=== PATIENT | male | born 1965 | race African-American/Black ===

== ENCOUNTER → 2020-05-23 10:05 | Outpatient (BNVA) | payer OTHER, SELFPAY | PROVIDERS: PCP Internal Medicine; Visit Provider Internal Medicine Cardiovascular Disease | DX: I50.20 Unspecified systolic (congestive) heart failure (principal); I42.9 Cardiomyopathy, unspecified; I48.92 Unspecified atrial flutter; Z79.899 Other long term (current) drug therapy | CPT/HCPCS: 93005; 99202 ==

== ENCOUNTER → 2020-07-04 10:27 | Outpatient (REF) | payer OTHER, SELFPAY ==
--- NOTE | ~2020-07-04 | XR_ITS ---
EXAMINATION: XR CHEST CLINICAL INFORMATION: I50.9 - Heart failure, unspecified COMPARISON: None TECHNIQUE: AP and lateral views of the chest were obtained. FINDINGS: Cardiac silhouette is enlarged. Mild pulmonary venous congestion. No pleural effusion, pneumothorax, or focal consolidation. No pulmonary edema. Degenerative disc disease is present in the thoracic spine. No acute osseous findings in the chest. XR/XR chest 2V IMPRESSION: Cardiomegaly with pulmonary venous congestion. No pulmonary edema.
--- NOTE | ~2020-07-04 | XR_ITS ---
EXAMINATION: XR LUMBOSACRAL SPINE CLINICAL INFORMATION: Other intervertebral disc degeneration, lumbar region. COMPARISON: None TECHNIQUE: AP and lateral views of the lumbar spine and lateral view of the lumbosacral junction. FINDINGS: There is marked facet arthropathy at L4-L5 with grade 1 anterolisthesis of L4 on L5 by 4 mm. Minimal degenerative disc disease at L4-L5. Intervertebral discs appear relatively well preserved otherwise. Endplate osteophytes are present at L5-S1. There is mild facet arthropathy at L5-S1 and at L3-L4. Vertebral body heights are normal. No fractures. SI joints appear well preserved. At least mild osteoarthritis is evident in the hips. Soft tissues are unremarkable. XR/XR lumbar spine 2-3V IMPRESSION: Marked facet arthropathy at L4-L5 with grade 1 anterolisthesis of L4 on L5 and mild degenerative disc disease. Mild facet arthropathy at L3-L4 and L5-S1.
--- NOTE | 2020-07-04 10:38 | CA_ITS ---
Transthoracic Echocardiogram Patient (Last, First, Middle): Hayder Rudolph, Gender: Male Date of : 1965 Age: 55 Procedure Date: 07/04/2020 Procedure Type: Transthoracic Echocardiogram Location: OP Height: 187.96 cm Weight: 126.1 kg BSA: 2.50 m2 Heart Rate: bpm BP: 136 / 80 mmHg Regulatory Compliance Director: JULIANNE Referring MD: Corby Rodriguez MD Symptoms: I50.9 - Heart failure, unspecified Study Quality: Technically Difficult/contrast ECG Rhythm: Atrial flutter Conclusions: - The left ventricular systolic function is severely decreased. The visually estimated ejection fraction is between 25-30%. - No obvious valvular pathology seen on this study. Findings Procedure Information Contrast agent, definity, is being given per protocol without apparent complications. Left Ventricle Mildly increased left ventricular cavity size. There is normal left ventricular wall thickness. The left ventricular systolic function is severely decreased. The visually estimated ejection fraction is between 25 30%. There is severe global hypokinesis. Diastolic function is indeterminate on the basis of available data. Right Ventricle Normal right ventricular cavity size and systolic function. Atria The left atrium is mildly dilated. The right atrium is normal in size. Aortic Valve There is a normal trileaflet aortic valve. There is no aortic valve stenosis. There is no aortic valve regurgitation. Mitral Valve The mitral valve appears normal. There is trace mitral valve regurgitation. There is no mitral valve stenosis. Pulmonic Valve The pulmonic valve was not well visualized. Tricuspid Valve The tricuspid valve was not well visualized. There is no tricuspid valve regurgitation. The pulmonary artery systolic pressure is not calculated. Great Vessels The aortic annulus, sinuses of valsalva, and asc aorta are normal in size. Venous The inferior vena cava is normal in size and collapses greater than 50% with inspiration. Pericardium/Pleural There is a trivial pericardial effusion. Prior Study Comparison No prior study available for comparison. Recommendations, Care & Conclusions No obvious valvular pathology seen on this study. Measurements 2D Linear Measurements Ao Root: 3.90 2.1-3.5 cm LVOT Diam: 2.40 3.0+(-)1.3 cm 2D Systolic Function EF 4C: 37.90 >55% EF 2C: 36.70 >55% Aortic Valve AoV Pk Leif: 0.94 AoV Mn Leif: 0.67 AoV VTI: 0.17 AoV Pk Grad: 4.00 Aov Mn Grad: 2.00 CHERYL Cont.VTI: 3.25 LVOT LVOT Pk Leif: 0.73 LVOT Mn Leif: 0.52 LVOT VTI: 0.12 LVOT Pk Grad: 2.00 LVOT Mn Grad: 1.00 LVOT Diam: 2.40 LVOT Area: 4.52 Great Vessels Aorta Ao Root-2D: 3.90 2.0-3.7 cm Ao Asc: 3.30 2.1-3.4 cm Ao Arch: 3.00 Updated in Other Vendor System with Status of Final Dawit Albright MD electronically signed on 07/04/2020 4:46:07 PM with status of Final
[2020-07-04 12:41] LABS: MANUAL DIFF FLAG NO
[2020-07-04 12:51] LABS: Basophils Percent Auto 0.6 % (0-2); Eosinophils Absolute Auto 0.1 X10*3/uL (0.0-0.4); Eosinophils Percent Auto 2.8 % (0-4); Hematocrit 46.9 % (42-52); Hemoglobin 15.2 g/dl (14.0-18.0); Imm Gran Abs Auto 0.01 X10*3/uL (0.00-0.03); Imm Gran Pct Auto 0.2 % (0.0-0.4); Lymphocytes Absolute Auto 1.5 X10*3/uL (1.2-4.9); Lymphocytes Percent Auto 32.4 % (20-40); Mean Corpuscular HGB Conc 32.4 g/dl (31.0-36.0); Mean Corpuscular Hemoglobin 29.7 pg (27.0-33.0); Mean Corpuscular Volume 91.8 fL (80-98); Mean Platelet Volume 12.5 fL (9.4-12.4); Monocytes Absolute Auto 0.4 X10*3/uL (0.1-1.2); Monocytes Percent Auto 7.7 % (2-11); Neutrophils Absolute Auto 2.6 X10*3/uL (2.0-8.3); Neutrophils Percent Auto 56.3 % (45-73); Platelet Count 180 X10*3/uL (160-400); Red Blood Count 5.11 X10*6/uL (4.60-5.80); Red Cell Distribution Width 15.1 % (11.0-16.0); White Blood Count 4.7 X10*3/uL (4.8-10.8)
[2020-07-04 12:53] LABS: Glucose Urine UA NEG (NEG); Leukocyte Esterase Urine NEG (NEG); Nitrite Urine NEG (NEG); Urine Blood TRACE (NEG); Urine Ketones NEG (NEG); Urine Protein 2+ MG/DL (NEG-TRACE)
[2020-07-04 12:56] LABS: Appearance Urine CLEAR; Color Urine YELLOW
[2020-07-04 12:59] LABS: Estimated Average Glucose 214 mg/dL; Hemoglobin A1c % 9.1 %
[2020-07-04 13:02] LABS: Mucus Urine 1+ /LPF; Squamous Epithelial Cell Urine 1+ /LPF; WBC Urine 0-2 /HPF (0-4)
[2020-07-04 13:13] LABS: Alanine Aminotransferase 16 U/L (0-40); Albumin Level 3.9 g/dL (3.5-5.0); Alkaline Phosphatase 79 U/L (39-117); Anion Gap 15 (12-20); Aspartate Amino Transferase 14 U/L (5-37); B Type Natriuretic Peptide 67 pg/mL (<100); Bilirubin Total 1.1 mg/dL (0.0-1.0); Blood Urea Nitrogen 21 mg/dL (9-16); Carbon Dioxide 27 mmol/L (22-29); Chloride 99 mmol/L (96-108); Cholesterol 198 mg/dL; Estimated Glomerular Filt Rate 42; Glucose Random 202 mg/dL (60-115); HDL Cholesterol 44 mg/dL; LDL Cholesterol Calculated 135 mg/dl; Potassium 4.4 mmol/L (3.3-5.1); Sodium 137 mmol/L (135-145); Total Protein 7.2 g/dL (6.5-8.0); Triglycerides 98 mg/dL; Uric Acid 8.9 mg/dL (3.4-7.0)
[2020-07-04 13:35] LABS: Free T4 (Free Thyroxine) 0.66 ng/dL (0.71-1.85); Prostate Specific Antigen Scr 0.28 ng/mL (<0.05-4.0); Thyroid Stimulating Hormone 3.93 uIU/mL (0.32-4.0)
[2020-07-04 13:50] LABS: Creatinine Urine 136.89 mg/dL
[2020-07-04 14:11] LABS: Microalbum/Creatinine Ratio Ur 734.8 ug/mg cr
[2020-07-04 14:17] LABS: Folate 13.5 ng/mL (> or = 4.0); Vitamin B12 443 pg/mL (200-900)
== END ==
LOC: HO.CARD 10:27
PROVIDERS: PCP Internal Medicine; Referring Provider Internal Medicine; Visit Provider Internal Medicine Cardiovascular Disease
DX: I11.0 Hypertensive heart disease with heart failure (principal); I50.9 Heart failure, unspecified; I42.9 Cardiomyopathy, unspecified; E11.65 Type 2 diabetes mellitus with hyperglycemia; M10.9 Gout, unspecified; E78.00 Pure hypercholesterolemia, unspecified; M51.36 Other intervertebral disc degeneration, lumbar region; Z79.4 Long term (current) use of insulin
CPT/HCPCS: 36415; 71046; 72100; 80053; 80061; 81001; 82043; 82607; 82746; 83036; 83880; 84153; 84439; 84443; 84550; 85025; 93306; Q9957

== ENCOUNTER → 2020-07-06 11:12 | Outpatient (BNVA) | payer OTHER, SELFPAY | PROVIDERS: PCP Internal Medicine; Visit Provider Nurse Practitioner Family | DX: I48.3 Typical atrial flutter (principal); I50.20 Unspecified systolic (congestive) heart failure; I42.9 Cardiomyopathy, unspecified; G47.33 Obstructive sleep apnea (adult) (pediatric); Z79.899 Other long term (current) drug therapy | CPT/HCPCS: 99212 ==

== ENCOUNTER 2020-07-06 12:30 | Emergency (ER) | payer OTHER, SELFPAY | END 2020-07-06 13:01 | disposition left against medical advice (07) | PROVIDERS: Emergency Provider Emergency Medicine; PCP Internal Medicine | DX: H92.09 Otalgia, unspecified ear (principal) ==

== ENCOUNTER → 2020-09-10 13:17 | Outpatient (BNVA) | payer OTHER, SELFPAY | PROVIDERS: PCP Internal Medicine; Referring Provider Internal Medicine; Visit Provider Internal Medicine Cardiovascular Disease | DX: I50.20 Unspecified systolic (congestive) heart failure (principal); I42.9 Cardiomyopathy, unspecified; I48.20 Chronic atrial fibrillation, unspecified | CPT/HCPCS: 93005; 99212 ==

== ENCOUNTER → 2020-11-08 15:36 | Outpatient (BNVA) | payer OTHER, SELFPAY | PROVIDERS: PCP Internal Medicine; Visit Provider Internal Medicine | DX: G47.33 Obstructive sleep apnea (adult) (pediatric) (principal); I50.20 Unspecified systolic (congestive) heart failure; I48.92 Unspecified atrial flutter; I48.20 Chronic atrial fibrillation, unspecified; I42.9 Cardiomyopathy, unspecified; E78.5 Hyperlipidemia, unspecified; E11.65 Type 2 diabetes mellitus with hyperglycemia; E66.01 Morbid (severe) obesity due to excess calories; Z68.42 Body mass index [BMI] 45.0-49.9, adult; Z88.1 Allergy status to other antibiotic agents; Z79.4 Long term (current) use of insulin; Z79.899 Other long term (current) drug therapy | CPT/HCPCS: 99202 ==

== ENCOUNTER → 2020-11-22 12:48 | Outpatient (BNVA) | payer OTHER, SELFPAY | PROVIDERS: PCP Internal Medicine; Visit Provider Internal Medicine Cardiovascular Disease ==

== ENCOUNTER → 2020-12-11 14:49 | Outpatient (BNVA) | payer OTHER, SELFPAY | PROVIDERS: PCP Internal Medicine; Visit Provider Internal Medicine | DX: E66.01 Morbid (severe) obesity due to excess calories (principal); G47.33 Obstructive sleep apnea (adult) (pediatric) | CPT/HCPCS: 99212 ==

== ENCOUNTER → 2021-01-06 20:44 | Outpatient (REF) | payer OTHER, SELFPAY | LOC: HO.SL 20:44 | PROVIDERS: PCP Internal Medicine; Visit Provider Internal Medicine | DX: G47.33 Obstructive sleep apnea (adult) (pediatric) (principal); I42.9 Cardiomyopathy, unspecified; I50.20 Unspecified systolic (congestive) heart failure | CPT/HCPCS: 95811 ==

== ENCOUNTER → 2021-01-22 15:09 | Outpatient (BNVA) | payer OTHER, SELFPAY | PROVIDERS: PCP Internal Medicine; Visit Provider Internal Medicine ==

== ENCOUNTER → 2021-03-18 14:57 | Outpatient (BNVA) | payer OTHER, SELFPAY | PROVIDERS: PCP Internal Medicine; Referring Provider Internal Medicine; Visit Provider Internal Medicine Cardiovascular Disease | DX: I50.20 Unspecified systolic (congestive) heart failure (principal); I42.9 Cardiomyopathy, unspecified; I48.20 Chronic atrial fibrillation, unspecified | CPT/HCPCS: 99212 ==

== ENCOUNTER 2021-06-11 13:31 | Outpatient (REF) | payer OTHER, SELFPAY ==
[2021-06-11 14:38] LABS: MANUAL DIFF FLAG NO
[2021-06-11 14:59] LABS: Basophils Percent Auto 0.4 % (0-2); Eosinophils Absolute Auto 0.1 X10*3/uL (0.0-0.4); Eosinophils Percent Auto 2.8 % (0-4); Hematocrit 43.9 % (42.0-52.0); Hemoglobin 14.2 g/dl (14.0-18.0); Imm Gran Abs Auto 0.03 X10*3/uL (0.00-0.03); Imm Gran Pct Auto 0.6 % (0.0-0.4); Lymphocytes Absolute Auto 1.3 X10*3/uL (1.2-4.9); Lymphocytes Percent Auto 27.9 % (20-40); Mean Corpuscular HGB Conc 32.3 g/dl (31.0-36.0); Mean Corpuscular Hemoglobin 29.8 pg (27.0-33.0); Mean Platelet Volume 12.2 fL (9.4-12.4); Monocytes Absolute Auto 0.4 X10*3/uL (0.1-1.2); Monocytes Percent Auto 7.7 % (2-11); Neutrophils Absolute Auto 2.8 x10*3/uL (2.0-8.3); Neutrophils Percent Auto 60.6 % (45-73); Platelet Count 178 X10*3/uL (160-400); Red Blood Count 4.77 X10*6/uL (4.60-5.80); Red Cell Distribution Width 13.5 % (11.0-16.0); White Blood Count 4.7 X10*3/uL (4.8-10.8)
[2021-06-11 15:23] LABS: Alanine Aminotransferase 18 U/L (0-40); Albumin Level 3.7 g/dL (3.5-5.0); Alkaline Phosphatase 67 U/L (39-117); Anion Gap 10 (12-20); Aspartate Amino Transferase 12 U/L (5-37); B Type Natriuretic Peptide 192 pg/mL (<100); Bilirubin Total 0.6 mg/dL (0.0-1.0); Blood Urea Nitrogen 29 mg/dL (9-16); Calcium 9.7 mg/dL (8.4-10.2); Carbon Dioxide 31 mmol/L (22-29); Chloride 99 mmol/L (96-108); Estimated Glomerular Filt Rate 41; Glucose Random 343 mg/dL (60-115); Potassium 4.5 mmol/L (3.3-5.1); Sodium 135 mmol/L (135-145); Total Protein 7.1 g/dL (6.5-8.0)
[2021-06-11 15:26] LABS: Estimated Average Glucose 226 mg/dL; Hemoglobin A1c % 9.5 %
[2021-06-12 04:46] LABS: SARS COV2 IgG Positive (Negative)
== END 2021-06-11 13:32 | disposition home or self-care (01) ==
LOC: HO.LAB 13:31
PROVIDERS: PCP Internal Medicine; Visit Provider Internal Medicine
DX: G47.33 Obstructive sleep apnea (adult) (pediatric) (principal); I50.20 Unspecified systolic (congestive) heart failure; R06.02 Shortness of breath; E11.65 Type 2 diabetes mellitus with hyperglycemia; N18.32 Chronic kidney disease, stage 3b; I48.92 Unspecified atrial flutter; E66.01 Morbid (severe) obesity due to excess calories; Z68.42 Body mass index [BMI] 45.0-49.9, adult; Z20.822 Contact with and (suspected) exposure to COVID-19; Z88.3 Allergy status to other anti-infective agents; Z99.89 Dependence on other enabling machines and devices; Z79.4 Long term (current) use of insulin; Z79.82 Long term (current) use of aspirin; Z79.899 Other long term (current) drug therapy
CPT/HCPCS: 36415; 80053; 83036; 83880; 85025; 86769; 99212

== ENCOUNTER → 2021-07-09 13:20 | Outpatient (BNVA) | payer OTHER, SELFPAY | PROVIDERS: PCP Internal Medicine; Referring Provider Internal Medicine; Visit Provider Internal Medicine Cardiovascular Disease | DX: I50.20 Unspecified systolic (congestive) heart failure (principal); I48.20 Chronic atrial fibrillation, unspecified | CPT/HCPCS: 93005; 99212 ==

== ENCOUNTER → 2021-09-24 13:22 | Outpatient (REF) | payer OTHER, SELFPAY ==
--- NOTE | 2021-09-24 13:27 | CA_ITS ---
Transthoracic Echocardiogram Patient (Last, First, Middle): Hayder Rudolph, Gender: Male Date of : 1965 Age: 56 Procedure Date: 09/24/2021 Procedure Type: Transthoracic Echocardiogram Location: OP Height: 187.96 cm Weight: 171.46 kg BSA: 2.85 m2 Heart Rate: bpm BP: 138 / 80 mmHg Services Executive: GRADY Referring MD: Corby Rodriguez MD Land Leases [employer] Rentals Manager: Corby Rodriguez MD Symptoms: I50.20 - Unspecified systolic (congestive) heart failure Study Quality: Technically Difficult due to obesity ECG Rhythm: Atrial flutter Conclusions: - 1. Technically limited study despite use of contrast agent 2. Moderately dilated left ventricle with severe LV systolic function with LVEF of 25-30% 3. Normal cardiac valvular Dopplers with limited visualization of cardiac valves Findings Procedure Information Contrast agent, definity, is being given per protocol without apparent complications. Left Ventricle Moderately increased left ventricular cavity size. There is normal left ventricular wall thickness. The left ventricular systolic function is severely decreased. The visually estimated ejection fraction is between 25 30%. Spectral Doppler is indicative of a restrictive filling pattern. Right Ventricle Normal right ventricular cavity size. There is low normal right ventricular systolic function. Atria The left atrium is moderately dilated. Interatrial shunt cannot be excluded. The right atrium was not well visualized. Aortic Valve The aortic valve was not well visualized. There is no aortic valve stenosis. There is no aortic valve regurgitation. Mitral Valve The mitral valve was not well visualized. There is no mitral valve stenosis. Pulmonic Valve The pulmonic valve was not well visualized. Tricuspid Valve The tricuspid valve was not well visualized. Tricuspid regurgitation envelope is inadequate for calculation of right ventricular systolic pressure. Mildly elevated right atrial pressure. Great Vessels The aorta was not well visualized. The pulmonary artery was not well visualized. Venous The inferior vena cava is moderately dilated and collapses greater than 50% with inspiration. Pericardium/Pleural The pericardium was not well visualized. Prior Study Comparison No significant change compared to prior study dated: 07/04/2020. Measurements 2D Linear Measurements IVSd: 1.11 0.6-0.9/0.6-1.0 cm LVIDd: 6.35 3.9-5.3/4.2-5.9 cm LVIDd Index: 2.23 2.4-3.2/2.2-3.1 cm/m2 LVIDs: 5.60 2.0-3.6 cm LVPWd: 0.92 0.7-1.1 cm Ao Root: 4.00 2.1-3.5 cm LA Diam: 5.60 2.7-3.8/3.0-4.0 cm LAIDs Index: 1.96 1.5-2.3 cm/m2 LV Mass: 345.73 67-162/88-224 g LV Mass Index: 121.31 43-95/49-115 g/m2 LVOT Diam: 2.60 3.0+(-)1.3 cm 2D Systolic Function EF 4C: 24.00 >55% EF 2C: 36.20 >55% Mitral Valve MV Pk E: 0.96 MV Decel Time: 92.00 E'Lateral: 9.57 E'Medial: 8.70 E/E' Med: 11.00 E/E' Lat: 10.00 PHT: 27.00 MVA PHT: 8.15 Decel [place]: 10.44 Aortic Valve AoV Pk Leif: 1.08 AoV Mn Leif: 0.71 AoV VTI: 0.22 AoV Pk Grad: 5.00 Aov Mn Grad: 2.00 CHERYL Cont.VTI: 2.96 LVOT LVOT Pk Leif: 0.62 LVOT Mn Leif: 0.43 LVOT VTI: 0.12 LVOT Pk Grad: 2.00 LVOT Mn Grad: 1.00 LVOT Diam: 2.60 LVOT Area: 5.31 Diastolic Function MV Pk E: 0.96 E'Medial: 8.70 E/E' Med: 11.00 E' Laterial: 9.57 E/E' Lat: 10.00 Tricuspid Valve TR Pk Leif: 1.19 TR Pk Grad: 6.00 RA Press: 8.00 RVSP: 14.00 Great Vessels Aorta Ao Root-2D: 4.00 2.0-3.7 cm Ao Asc: 3.30 2.1-3.4 cm Pulmonary Valve PV Pk Leif: 0.73 Peak PV Grad: 2.00 Updated in Other Vendor System with Status of Final Corby Rodriguez MD electronically signed on 09/25/2021 2:43:05 PM with status of Final
[2021-09-24 14:49] LABS: MANUAL DIFF FLAG NO
[2021-09-24 15:27] LABS: Basophils Percent Auto 0.6 % (0-2); Eosinophils Absolute Auto 0.1 X10*3/uL (0.0-0.4); Eosinophils Percent Auto 3.3 % (0-4); Hematocrit 43.9 % (42.0-52.0); Hemoglobin 14.2 g/dl (14.0-18.0); Lymphocytes Absolute Auto 1.3 X10*3/uL (1.2-4.9); Lymphocytes Percent Auto 37.4 % (20-40); Mean Corpuscular HGB Conc 32.3 g/dl (31.0-36.0); Mean Corpuscular Hemoglobin 29.6 pg (27.0-33.0); Mean Corpuscular Volume 91.5 fL (80.0-98.0); Mean Platelet Volume 12.5 fL (9.4-12.4); Monocytes Absolute Auto 0.3 X10*3/uL (0.1-1.2); Monocytes Percent Auto 8.7 % (2-11); Neutrophils Absolute Auto 1.7 x10*3/uL (2.0-8.3); Platelet Count 159 X10*3/uL (160-400); Red Cell Distribution Width 13.6 % (11.0-16.0); White Blood Count 3.3 X10*3/uL (4.8-10.8)
[2021-09-24 16:02] LABS: Alanine Aminotransferase 16 U/L (0-40); Albumin Level 3.6 g/dL (3.5-5.0); Alkaline Phosphatase 61 U/L (39-117); Anion Gap 13 (12-20); Aspartate Amino Transferase 14 U/L (5-37); Bilirubin Total 0.7 mg/dL (0.0-1.0); Blood Urea Nitrogen 22 mg/dL (9-16); Carbon Dioxide 26 mmol/L (22-29); Chloride 104 mmol/L (96-108); Cholesterol 196 mg/dL; Estimated Glomerular Filt Rate 49; Glucose Random 208 mg/dL (60-115); HDL Cholesterol 37 mg/dL; LDL Cholesterol Calculated 138 mg/dl; Potassium 4.1 mmol/L (3.3-5.1); Sodium 139 mmol/L (135-145); Total Protein 6.7 g/dL (6.5-8.0); Triglycerides 105 mg/dL
[2021-09-24 16:09] LABS: B Type Natriuretic Peptide 214 pg/mL (<100)
[2021-09-24 16:15] LABS: Estimated Average Glucose 258 mg/dL; Hemoglobin A1c % 10.6 %
[2021-09-24 16:26] LABS: Free T4 (Free Thyroxine) 1.07 ng/dL (0.71-1.85); Prostate Specific Antigen Scr 0.13 ng/mL (<0.05-4.0); Thyroid Stimulating Hormone 1.72 uIU/mL (0.32-4.0)
[2021-09-24 16:35] LABS: Folate 12.1 ng/mL (> or = 4.0); Vitamin B12 258 pg/mL (200-900)
[2021-09-27 14:02] LABS: SARS COV2 IgG POSITIVE
== END ==
LOC: HO.CARD 13:22
PROVIDERS: PCP Internal Medicine; Visit Provider Internal Medicine Cardiovascular Disease
DX: Z12.5 Encounter for screening for malignant neoplasm of prostate (principal); Z20.822 Contact with and (suspected) exposure to COVID-19; I50.20 Unspecified systolic (congestive) heart failure; I48.20 Chronic atrial fibrillation, unspecified; E78.00 Pure hypercholesterolemia, unspecified
CPT/HCPCS: 36415; 80053; 80061; 82607; 82746; 83036; 83880; 84153; 84439; 84443; 85025; 86769; 93306; Q9957

== ENCOUNTER → 2021-10-03 13:05 | Outpatient (BNVA) | payer OTHER, SELFPAY | PROVIDERS: PCP Internal Medicine; Referring Provider Internal Medicine; Visit Provider Internal Medicine Cardiovascular Disease | DX: I50.20 Unspecified systolic (congestive) heart failure (principal); I48.3 Typical atrial flutter | CPT/HCPCS: 99212 ==

== ENCOUNTER → 2021-10-08 13:49 | Outpatient (BNVA) | payer OTHER, SELFPAY | PROVIDERS: PCP Internal Medicine; Visit Provider Internal Medicine | DX: G47.33 Obstructive sleep apnea (adult) (pediatric) (principal); E66.01 Morbid (severe) obesity due to excess calories; I50.20 Unspecified systolic (congestive) heart failure; Z68.42 Body mass index [BMI] 45.0-49.9, adult | CPT/HCPCS: 99212 ==

== ENCOUNTER → 2021-11-19 13:57 | Outpatient (BNVA) | payer OTHER, SELFPAY | PROVIDERS: PCP Internal Medicine; Visit Provider Internal Medicine Cardiovascular Disease | DX: I48.20 Chronic atrial fibrillation, unspecified (principal); I50.20 Unspecified systolic (congestive) heart failure; Z79.01 Long term (current) use of anticoagulants; Z79.899 Other long term (current) drug therapy; Z95.810 Presence of automatic (implantable) cardiac defibrillator | CPT/HCPCS: 99212 ==

== ENCOUNTER → 2022-01-07 13:13 | Outpatient (BNVA) | payer OTHER, SELFPAY | PROVIDERS: PCP Internal Medicine; Referring Provider Internal Medicine; Visit Provider Internal Medicine Cardiovascular Disease | DX: I50.20 Unspecified systolic (congestive) heart failure (principal); I48.20 Chronic atrial fibrillation, unspecified; Z95.810 Presence of automatic (implantable) cardiac defibrillator | CPT/HCPCS: 93005; 99212 ==

== ENCOUNTER → 2022-01-21 14:08 | Outpatient (BNVA) | payer OTHER, SELFPAY | PROVIDERS: PCP Internal Medicine; Visit Provider Dietitian, Registered | DX: E11.65 Type 2 diabetes mellitus with hyperglycemia (principal); Z79.4 Long term (current) use of insulin | CPT/HCPCS: 97802 ==

== ENCOUNTER → 2022-02-26 14:32 | Outpatient (BNVA) | payer OTHER, SELFPAY | PROVIDERS: PCP Internal Medicine; Visit Provider Internal Medicine | DX: G47.33 Obstructive sleep apnea (adult) (pediatric) (principal); E66.01 Morbid (severe) obesity due to excess calories; I42.9 Cardiomyopathy, unspecified | CPT/HCPCS: 99212 ==

== ENCOUNTER → 2022-03-11 14:31 | Outpatient (BNVA) | payer OTHER, SELFPAY | PROVIDERS: PCP Internal Medicine; Referring Provider Internal Medicine; Visit Provider Internal Medicine Cardiovascular Disease | DX: I50.22 Chronic systolic (congestive) heart failure (principal); I48.20 Chronic atrial fibrillation, unspecified; Z79.01 Long term (current) use of anticoagulants | CPT/HCPCS: 99212 ==

== ENCOUNTER 2022-05-06 13:26 | Outpatient (REF) | payer OTHER, SELFPAY ==
[2022-05-06 14:14] LABS: MANUAL DIFF FLAG NO
[2022-05-06 14:41] LABS: Basophils Percent Auto 0.5 % (0-2); Eosinophils Absolute Auto 0.2 X10*3/uL (0.0-0.4); Eosinophils Percent Auto 2.5 % (0-4); Hematocrit 47.2 % (42.0-52.0); Hemoglobin 14.8 g/dl (14.0-18.0); Imm Gran Abs Auto 0.03 X10*3/uL (0.00-0.03); Imm Gran Pct Auto 0.5 % (0.0-0.4); Lymphocytes Absolute Auto 1.2 X10*3/uL (1.2-4.9); Lymphocytes Percent Auto 20.3 % (20-40); Mean Corpuscular HGB Conc 31.4 g/dl (31.0-36.0); Mean Corpuscular Hemoglobin 29.2 pg (27.0-33.0); Mean Corpuscular Volume 93.3 fL (80.0-98.0); Mean Platelet Volume 11.7 fL (9.4-12.4); Monocytes Absolute Auto 0.6 X10*3/uL (0.1-1.2); Monocytes Percent Auto 10.1 % (2-11); Neutrophils Absolute Auto 3.9 x10*3/uL (2.0-8.3); Neutrophils Percent Auto 66.1 % (45-73); Platelet Count 193 X10*3/uL (160-400); Red Blood Count 5.06 X10*6/uL (4.60-5.80); Red Cell Distribution Width 17.7 % (11.0-16.0)
[2022-05-06 15:07] LABS: B Type Natriuretic Peptide 166 pg/mL (<100)
[2022-05-06 15:15] LABS: Alanine Aminotransferase 18 U/L (0-40); Albumin Level 3.8 g/dL (3.5-5.0); Alkaline Phosphatase 76 U/L (39-117); Anion Gap 11 (12-20); Aspartate Amino Transferase 16 U/L (5-37); Bilirubin Total 1.4 mg/dL (0.0-1.0); Blood Urea Nitrogen 32 mg/dL (9-16); Calcium 9.4 mg/dL (8.4-10.2); Carbon Dioxide 29 mmol/L (22-29); Chloride 103 mmol/L (96-108); Cholesterol 130 mg/dL; Estimated Glomerular Filt Rate 33; Glucose Random 152 mg/dL (60-115); HDL Cholesterol 34 mg/dL; LDL Cholesterol Calculated 79 mg/dl; Magnesium 1.9 mg/dL (1.6-2.6); Potassium 4.7 mmol/L (3.3-5.1); Sodium 138 mmol/L (135-145); Total Protein 7.2 g/dL (6.5-8.0); Triglycerides 87 mg/dL; Uric Acid 7.9 mg/dL (3.4-7.0)
[2022-05-06 15:19] LABS: Estimated Average Glucose 151 mg/dL; Hemoglobin A1c % 6.9 %
[2022-05-06 15:35] LABS: Folate 11.4 ng/mL (> or = 4.0); Free T4 (Free Thyroxine) 0.95 ng/dL (0.71-1.85); Thyroid Stimulating Hormone 2.91 uIU/mL (0.32-4.0); Vitamin B12 309 pg/mL (200-900)
== END 2022-05-06 13:27 | disposition home or self-care (01) ==
LOC: HO.LAB 13:26
PROVIDERS: PCP Internal Medicine; Referring Provider Internal Medicine; Visit Provider Internal Medicine Cardiovascular Disease
DX: I50.40 Unspecified combined systolic (congestive) and diastolic (congestive) heart failure (principal); E11.65 Type 2 diabetes mellitus with hyperglycemia; E78.00 Pure hypercholesterolemia, unspecified; Z79.4 Long term (current) use of insulin
CPT/HCPCS: 36415; 80053; 80061; 82607; 82746; 83036; 83735; 83880; 84439; 84443; 84550; 85025

== ENCOUNTER → 2022-07-08 10:44 | Outpatient (BNVA) | payer OTHER, SELFPAY | PROVIDERS: PCP Internal Medicine; Visit Provider Dietitian, Registered | DX: E11.65 Type 2 diabetes mellitus with hyperglycemia (principal); Z79.4 Long term (current) use of insulin | CPT/HCPCS: 97803 ==

== ENCOUNTER → 2022-08-26 16:12 | Outpatient (BNVA) | payer OTHER, SELFPAY | PROVIDERS: PCP Internal Medicine; Visit Provider Internal Medicine | DX: G47.33 Obstructive sleep apnea (adult) (pediatric) (principal); E66.01 Morbid (severe) obesity due to excess calories; Z68.43 Body mass index [BMI] 50.0-59.9, adult; Z99.89 Dependence on other enabling machines and devices; Z99.3 Dependence on wheelchair | CPT/HCPCS: 99212 ==

== ENCOUNTER → 2022-09-01 13:58 | Outpatient (BNVA) | payer OTHER, SELFPAY | PROVIDERS: PCP Internal Medicine; Referring Provider Internal Medicine; Visit Provider Internal Medicine Cardiovascular Disease | DX: Z45.02 Encounter for adjustment and management of automatic implantable cardiac defibrillator (principal); I50.20 Unspecified systolic (congestive) heart failure; I48.20 Chronic atrial fibrillation, unspecified | CPT/HCPCS: 99212 ==

== ENCOUNTER 2022-10-16 10:59 | Outpatient (AMB) | payer OTHER, SELFPAY ==
--- NOTE | 2022-10-16 11:09 | MHC.AMNUTRGE ---
Intake Intake Visit Reasons: T2DM Allergies azithromycin Allergy (Intermediate, Verified 09/01/22 14:29) Rash HPI Nutrition Presentation Details Pt presents for MNT for T2DM. Pt reports being mindful of food portion sizes. He reports he is more concerned regarding fluid retention related to heart failure. Pt reports he is followed at [facility] for heart failure. Today we will discuss low sodium food concepts Pt reports meals typically consist of fruit shake (2 fruits and water or light juice) 11am -1 pm 2 boiled eggs and oatmeal made with water or low fat milk 5-7 pm : Knok or [employer] meals, [facility] snack : fruit, cracker food frequency fruits: 4-5 /d protein > 26 servings (poultry/beef/eggs/beans vegetables: 5-6 serving/d dairy: choosing lactose free 3-4 serving/d starches> 25 servings Fried foods: 3-4 x/wk fluids: water, light juices/smoothies physical activity: sedentary - uses wheel chair to mobilize Most Recent Diabetes Results: No Data to Display [facility] Medical History Atrial flutter Bipolar depression Cardiomyopathy Chronic atrial fibrillation Generalized anxiety disorder GERD (gastroesophageal reflux disease) Heart failure with reduced ejection fraction Hyperlipidemia ICD (implantable cardioverter-defibrillator) in place Lumbar degenerative disc disease Morbid obesity Osteoarthritis of knees, bilateral Type 2 diabetes mellitus with hyperglycemia Surgical History History of ankle surgery History of implantable cardioverter-defibrillator (ICD) insertion Family History Mother Alcohol abuse Maternal Grandmother Alcohol abuse Social History Housing: Apartment Alcohol intake: current Alcohol intake frequency: holidays/special occasions only Alcohol type: wine Patient Tobacco Use Status: Never used Tobacco e-Cigarette/Vaping Use: Never Used Second Hand Smoke Exposure: No Current occupational status: disabled Cognitive needs: No Hearing needs: No Vision needs: No Assessment & Plan Assessment & Plan (1) Type 2 diabetes mellitus with hyperglycemia: Code(s): E11.65 - Type 2 diabetes mellitus with hyperglycemia Qualifiers: Diabetes mellitus long term care administrator insulin use: with long term care administrator use Qualified Code(s): E11.65 - Type 2 diabetes mellitus with hyperglycemia; Z79.4 - USP (current) use of insulin Plan: Educate Pt on 2500 -2600 meliton meal plan ? Used wt : 168 kg Est kcal as per MSJ: 3102- 500 = (40% carb, 30% fat/prot) Est fluid needs: 4200 ml/d (25 ml/kg bw) Rec fiber: increase to 8-10 g per day and gradually increase to 35 g or as tolerated Rec Na: < 2000 mg /d Educate patient on: (R= Reviewed, V = verbalizes understanding N/R= Needs review N/A= not applicable) Food sources of carbohydrates and serving adequate serving sizes : R Difference between complex carbohydrates and simple carbohydrates, role of fiber: R Differences between fats (MUFA/PUFA/saturated fats, trans fats) and food sources of various fats: R (low fat basic) Food sources of sodium and salt and healthy modifications for heart health and kidney health: R How to interpret food labels: R Healthy Plate method concept: R Physical activity: benefits and precaution: N/R Patient Instructions: Continue working on diet modifications reducing on portion sizes of high fat/breaded food items. Follow mindful eating strategies . Be aware of high salt content of foods, condiments, sauces (ketchup/mustard/breaded food items)) and continue working on modifying amount consumed and choosing lower sodium options. See list of low sodium food options. Make appointment with your primary care provider call for questions Coding Level of Care Code Nutr Indiv Subseq ([id number]) Diagnoses Type 2 diabetes mellitus with hyperglycemia E11.65; Z79.4 Diabetes mellitus long term care administrator insulin use: with long term care administrator use Time Spent (min) 30
== END 2022-10-16 12:52 | disposition home or self-care (01) ==
PROVIDERS: PCP Internal Medicine; Visit Provider Dietitian, Registered
DX: E11.65 Type 2 diabetes mellitus with hyperglycemia (principal); Z79.4 Long term (current) use of insulin

== ENCOUNTER → 2022-10-16 10:59 | Outpatient (BNVA) | payer OTHER, SELFPAY | PROVIDERS: Visit Provider Dietitian, Registered | DX: E11.65 Type 2 diabetes mellitus with hyperglycemia (principal); Z79.4 Long term (current) use of insulin | CPT/HCPCS: 97803 ==

== ENCOUNTER → 2022-10-21 23:59 | Outpatient (BNV) | payer OTHER, SELFPAY ==
--- NOTE | 2022-10-21 12:29 | MHC.OFFVIS ---
Intake Intake Visit Reasons: Remote ICD Check- [employer] Allergies azithromycin Allergy (Intermediate, Verified 09/01/22 14:29) Rash PFS Medical History Atrial flutter Bipolar depression Cardiomyopathy Chronic atrial fibrillation Generalized anxiety disorder GERD (gastroesophageal reflux disease) Heart failure with reduced ejection fraction Hyperlipidemia ICD (implantable cardioverter-defibrillator) in place Lumbar degenerative disc disease Morbid obesity Osteoarthritis of knees, bilateral Type 2 diabetes mellitus with hyperglycemia Surgical History History of ankle surgery History of implantable cardioverter-defibrillator (ICD) insertion Family History Mother Alcohol abuse Maternal Grandmother Alcohol abuse Social History Housing: Apartment Alcohol intake: current Alcohol intake frequency: holidays/special occasions only Alcohol type: wine Patient Tobacco Use Status: Never used Tobacco e-Cigarette/Vaping Use: Never Used Second Hand Smoke Exposure: No Current occupational status: disabled Cognitive needs: No Hearing needs: No Vision needs: No Office Procedures Cardiac Device Check Cardiac Device Check Details: Remote ICD report generated 10/21/2022. ICD function is adequate [id number] Cardiac Interrogation, implant defibrillator w/interim Procedure code (CPT) selection complete Coding Level of Care Code Procedure Only Diagnoses CPT Codes Cardiac Device Check - Cardiac Device 13: [id number] Cardiac Interrogation, implant defibrillator w/interim ([id number])
== END ==
PROVIDERS: PCP Internal Medicine; Visit Provider Internal Medicine Cardiovascular Disease
DX: Z45.02 Encounter for adjustment and management of automatic implantable cardiac defibrillator (principal)
CPT/HCPCS: 93295

== ENCOUNTER → 2022-10-21 23:59 | Outpatient (BNV) | payer OTHER, SELFPAY ==
--- NOTE | 2022-10-21 12:30 | A.OFFVIS_ITS ---
Intake Intake Visit Reasons: Remote HF Monitoring- [employer] Allergies azithromycin Allergy (Intermediate, Verified 09/01/22 14:29) Rash PFSH Medical History Atrial flutter Bipolar depression Cardiomyopathy Chronic atrial fibrillation Generalized anxiety disorder GERD (gastroesophageal reflux disease) Heart failure with reduced ejection fraction Hyperlipidemia ICD (implantable cardioverter-defibrillator) in place Lumbar degenerative disc disease Morbid obesity Osteoarthritis of knees, bilateral Type 2 diabetes mellitus with hyperglycemia Surgical History History of ankle surgery History of implantable cardioverter-defibrillator (ICD) insertion Family History Mother Alcohol abuse Maternal Grandmother Alcohol abuse Social History Housing: Apartment Alcohol intake: current Alcohol intake frequency: holidays/special occasions only Alcohol type: wine Patient Tobacco Use Status: Never used Tobacco e-Cigarette/Vaping Use: Never Used Second Hand Smoke Exposure: No Current occupational status: disabled Cognitive needs: No Hearing needs: No Vision needs: No Office Procedures Cardiac Device Check Cardiac Device Check Details: Remote heart failure monitor shows elevated filling pressures. Report generated 10/21/2022. Patient has been contacted any as over the weekend increase diuretic regimen feels better. Importance of remote monitoring was discussed with him. [id number] Cardiac Device Interrogation, cardio physiologic monitor Procedure code (CPT) selection complete Coding Level of Care Code Procedure Only Diagnoses CPT Codes Cardiac Device Check - Cardiac Device 15: [id number] Cardiac Device Interrogation, cardio physiologic monitor ([id number])
== END ==
PROVIDERS: PCP Internal Medicine; Visit Provider Internal Medicine Cardiovascular Disease
DX: I50.20 Unspecified systolic (congestive) heart failure (principal); Z95.810 Presence of automatic (implantable) cardiac defibrillator
CPT/HCPCS: 93297

== ENCOUNTER → 2022-11-30 23:59 | Outpatient (BNV) | payer OTHER, SELFPAY ==
--- NOTE | 2022-12-08 10:52 | A.OFFVIS_ITS ---
Intake Intake Visit Reasons: Remote HF monitoring- [employer] Allergies azithromycin Allergy (Intermediate, Verified 09/01/22 14:29) Rash PFSH Medical History Atrial flutter Bipolar depression Cardiomyopathy Chronic atrial fibrillation Generalized anxiety disorder GERD (gastroesophageal reflux disease) Heart failure with reduced ejection fraction Hyperlipidemia ICD (implantable cardioverter-defibrillator) in place Lumbar degenerative disc disease Morbid obesity Osteoarthritis of knees, bilateral Type 2 diabetes mellitus with hyperglycemia Surgical History History of ankle surgery History of implantable cardioverter-defibrillator (ICD) insertion Family History Mother Alcohol abuse Maternal Grandmother Alcohol abuse Social History Housing: Apartment Alcohol intake: current Alcohol intake frequency: holidays/special occasions only Alcohol type: wine Patient Tobacco Use Status: Never used Tobacco e-Cigarette/Vaping Use: Never Used Second Hand Smoke Exposure: No Current occupational status: disabled Cognitive needs: No Hearing needs: No Vision needs: No Office Procedures Cardiac Device Check Cardiac Device Check Details: Remote heart failure report generated 12/01/2022. Heart failure parameters are nondiagnostic [id number] Cardiac Device Interrogation, cardio physiologic monitor Procedure code (CPT) selection complete Assessment & Plan Assessment & Plan Medications: Discontinued blood-glucose sensor (Dexcom G6 Sensor device) Discontinued Reason: Insurance Denied As directed 3 ea 5RF E11.65 - Type 2 diabetes mellitus with hyperglycemia, Z79.4 - intermediate (current) use of insulin Coding Level of Care Code Procedure Only CPT Codes Cardiac Device Check - Cardiac Device 15: [id number] Cardiac Device Interrogation, cardio physiologic monitor ([id number])
== END ==
PROVIDERS: PCP Internal Medicine; Visit Provider Internal Medicine Cardiovascular Disease
DX: I50.20 Unspecified systolic (congestive) heart failure (principal); Z95.810 Presence of automatic (implantable) cardiac defibrillator
CPT/HCPCS: 93297

== ENCOUNTER → 2023-01-17 23:59 | Outpatient (BNV) | payer OTHER, SELFPAY ==
--- NOTE | 2023-01-23 15:52 | A.OFFVIS_ITS ---
Intake Intake Visit Reasons: Remote HF Monitoring- [employer] Allergies azithromycin Allergy (Intermediate, Verified 09/01/22 14:29) Rash PFSH Medical History Atrial flutter Bipolar depression Cardiomyopathy Chronic atrial fibrillation Generalized anxiety disorder GERD (gastroesophageal reflux disease) Heart failure with reduced ejection fraction Hyperlipidemia ICD (implantable cardioverter-defibrillator) in place Lumbar degenerative disc disease Morbid obesity Osteoarthritis of knees, bilateral Type 2 diabetes mellitus with hyperglycemia Surgical History History of ankle surgery History of implantable cardioverter-defibrillator (ICD) insertion Family History Mother Alcohol abuse Maternal Grandmother Alcohol abuse Social History Housing: Apartment Alcohol intake: current Alcohol intake frequency: holidays/special occasions only Alcohol type: wine Patient Tobacco Use Status: Never used Tobacco e-Cigarette/Vaping Use: Never Used Second Hand Smoke Exposure: No Current occupational status: disabled Cognitive needs: No Hearing needs: No Vision needs: No Office Procedures Cardiac Device Check Cardiac Device Check Details: Remote heart failure report generated 01/17/2023. Heart failure are elevated. Will follow-up with patient clinically [id number] Cardiac Device Interrogation, cardio physiologic monitor Procedure code (CPT) selection complete Coding Level of Care Code Procedure Only CPT Codes Cardiac Device Check - Cardiac Device 15: [id number] Cardiac Device Interrogation, cardio physiologic monitor ([id number])
== END ==
PROVIDERS: PCP Internal Medicine; Visit Provider Internal Medicine Cardiovascular Disease
DX: I50.20 Unspecified systolic (congestive) heart failure (principal); Z95.810 Presence of automatic (implantable) cardiac defibrillator
CPT/HCPCS: 93297

== ENCOUNTER → 2023-02-21 23:59 | Outpatient (BNV) | payer OTHER, SELFPAY ==
--- NOTE | 2023-02-25 13:25 | MHC.OFFVIS ---
Intake Intake Visit Reasons: Remote ICD Check- [employer] Allergies azithromycin Allergy (Intermediate, Verified 09/01/22 14:29) Rash [facility] Medical History Atrial flutter Bipolar depression Cardiomyopathy Chronic atrial fibrillation Generalized anxiety disorder GERD (gastroesophageal reflux disease) Heart failure with reduced ejection fraction Hyperlipidemia ICD (implantable cardioverter-defibrillator) in place Lumbar degenerative disc disease Morbid obesity Osteoarthritis of knees, bilateral Type 2 diabetes mellitus with hyperglycemia Surgical History History of ankle surgery History of implantable cardioverter-defibrillator (ICD) insertion Family History Mother Alcohol abuse Maternal Grandmother Alcohol abuse Social History Housing: Apartment Alcohol intake: current Alcohol intake frequency: holidays/special occasions only Alcohol type: wine Patient Tobacco Use Status: Never used Tobacco e-Cigarette/Vaping Use: Never Used Second Hand Smoke Exposure: No Current occupational status: disabled Cognitive needs: No Hearing needs: No Vision needs: No Office Procedures Cardiac Device Check Cardiac Device Check Details: Remote ICD report generated 02/25/2023. At ICD function is adequate. [place] [id number] Cardiac Interrogation, implant defibrillator w/interim Procedure code (CPT) selection complete Assessment & Plan Assessment & Plan (1) ICD (implantable cardioverter-defibrillator) in place: Code(s): Z95.810 - Presence of automatic (implantable) cardiac defibrillator Plan: See above Coding Level of Care Code Procedure Only Diagnoses ICD (implantable cardioverter-defibrillator) in place Z95.810 CPT Codes Cardiac Device Check - Cardiac Device 13: [id number] Cardiac Interrogation, implant defibrillator w/interim ([id number])
== END ==
PROVIDERS: PCP Internal Medicine; Visit Provider Internal Medicine Cardiovascular Disease
DX: I42.9 Cardiomyopathy, unspecified (principal); Z95.810 Presence of automatic (implantable) cardiac defibrillator
CPT/HCPCS: 93295

== ENCOUNTER → 2023-02-21 23:59 | Outpatient (BNV) | payer OTHER, SELFPAY ==
--- NOTE | 2023-02-25 13:26 | A.OFFVIS_ITS ---
Intake Intake Visit Reasons: Remote HF Monitoring- [facility] Allergies azithromycin Allergy (Intermediate, Verified 09/01/22 14:29) Rash PFSH Medical History Atrial flutter Bipolar depression Cardiomyopathy Chronic atrial fibrillation Generalized anxiety disorder GERD (gastroesophageal reflux disease) Heart failure with reduced ejection fraction Hyperlipidemia ICD (implantable cardioverter-defibrillator) in place Lumbar degenerative disc disease Morbid obesity Osteoarthritis of knees, bilateral Type 2 diabetes mellitus with hyperglycemia Surgical History History of ankle surgery History of implantable cardioverter-defibrillator (ICD) insertion Family History Mother Alcohol abuse Maternal Grandmother Alcohol abuse Social History Housing: Apartment Alcohol intake: current Alcohol intake frequency: holidays/special occasions only Alcohol type: wine Patient Tobacco Use Status: Never used Tobacco e-Cigarette/Vaping Use: Never Used Second Hand Smoke Exposure: No Current occupational status: disabled Cognitive needs: No Hearing needs: No Vision needs: No Office Procedures Cardiac Device Check Cardiac Device Check Details: Remote heart failure report generated 02/20/2023. Heart failure markers elevated. Will follow-up with the patient [id number] Cardiac Device Interrogation, cardio physiologic monitor Procedure code (CPT) selection complete Assessment & Plan Assessment & Plan (1) ICD (implantable cardioverter-defibrillator) in place: Code(s): Z95.810 - Presence of automatic (implantable) cardiac defibrillator Plan: See above Coding Level of Care Code Procedure Only Diagnoses ICD (implantable cardioverter-defibrillator) in place Z95.810 CPT Codes Cardiac Device Check - Cardiac Device 15: [id number] Cardiac Device Interrogation, cardio physiologic monitor ([id number])
== END ==
PROVIDERS: PCP Internal Medicine; Visit Provider Internal Medicine Cardiovascular Disease
DX: I50.20 Unspecified systolic (congestive) heart failure (principal); Z95.810 Presence of automatic (implantable) cardiac defibrillator
CPT/HCPCS: 93297